=== PATIENT | male | born 1990 | race Caucasian/White ===

== ENCOUNTER 2021-05-16 15:27 | Emergency (ER) | payer OTHER ==
[~2021-05-16] VITALS: Ht 182.9 cm; Wt 88.0 kg
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
== END 2021-05-16 16:48 | disposition home or self-care (01) ==
LOC: ED 15:27
DX: R55 Syncope and collapse (principal); J45.909 Unspecified asthma, uncomplicated; Z88.2 Allergy status to sulfonamides
CPT/HCPCS: 99283

== ENCOUNTER 2021-08-16 15:53 | Emergency (ER) | payer OTHER ==
--- OUTSIDE RECORDS SUMMARY | 2021-08-16 15:54 | XMS ---
PreManage Notification: CAM RIVERA Security Shop Laborer Events No recent Security Events currently on file CRITERIA MET - [facility] - 2 Visits in 30 Days - 6 ED Visits in 6 Months CARE PROVIDERS ARTHUR CUEVAS Physician Current PHONE: [phone] Mic has no Care Guidelines for this patient. E.D. VISIT COUNT (12 MO.) 1 [facility] 2 Rene Meyer M[facility] 1 [facility] [place] [address] 3 [facility] TOTAL 11 NOTE: Visits indicate total known visits. ED/UCC VISIT TRACKING (12 MO.) 08/16/2021 15:53 SEL[facility] Pe[facility] [place] TYPE: Emergency COMPLAINT: - FALL 08/10/2021 16:59 [facility] [place] TYPE: Emergency COMPLAINT: - DENTAL PROBLEM 05/16/2021 15:28 [facility] [place] TYPE: Emergency COMPLAINT: - SEIZURE DIAGNOSES: - Syncope and collapse - Unspecified convulsions - Unspecified asthma, uncomplicated - Allergy status to sulfonamides 03/30/2021 10:53 [facility] TYPE: Emergency DIAGNOSES: 34041. foot pain;shoulder pain 84994. Homelessness unspecified 55326. Pain in left shoulder 03/28/2021 13:46 [facility] TYPE: Emergency DIAGNOSES: 30629. [id number] 23365. Contusion of other part of head, initial encounter 74936. Unspecified convulsions 59345. Abrasion of other part of head, initial encounter 03/03/2021 14:50 [facility] TYPE: Emergency DIAGNOSES: 36830. low blood sugar, seizure 58961. Tremor, unspecified 37694. Unspecified acute noninfective otitis externa, left ear 75522. Starvation, initial encounter 02/27/2021 21:06 [facility] [place] TYPE: Emergency DIAGNOSES: - Seizure (Adult - Prior Hx Of) - Contusion of left index finger without damage to nail, initial encounter 10/25/2020 21:10 [facility] [place] TYPE: Emergency DIAGNOSES: - Encounter for removal of sutures - Unspecified conjunctivitis - WANTS ANGELA REMOVED 10/23/2020 21:11 Rene [facility]NAL[facility] TYPE: Emergency COMPLAINT: - Staple check/removal DIAGNOSES: - Staple check/removal 10/02/2020 18:[address] [facility] [place] TYPE: Emergency COMPLAINT: - Unspecified convulsions DIAGNOSES: 1. Other seizures 2. Laceration without foreign body of scalp, initial encounter 3. Striking against or struck by other objects, initial encounter 4. Contact with and (suspected) exposure to COVID19 09/16/2020 02:20 [facility] [employer] [place] TYPE: Emergency COMPLAINT: - Nausea DIAGNOSES: 1. Nausea INPATIENT VISIT TRACKING (12 MO.) No inpatient visits to display in this time frame [id number]
== END 2021-08-16 18:00 | disposition home or self-care (01) ==
LOC: ED 15:53
DX: F10.129 Alcohol abuse with intoxication, unspecified (principal); J45.909 Unspecified asthma, uncomplicated; Z88.2 Allergy status to sulfonamides; Y90.8 Blood alcohol level of 240 mg/100 ml or more
CPT/HCPCS: 36415; 80048; 85025; 99284; G0480; J7030

== ENCOUNTER → 2021-09-23 | Emergency (ER) | payer OTHER ==
[~2021-09-23] VITALS: Ht 182.9 cm; Wt 93.9 kg
[~2021-09-23] MED LIST: FLUOXETINE HCL20 MG PO
--- OUTSIDE RECORDS SUMMARY | 2021-09-23 09:20 | XMS ---
PreManage Notification: CAM RIVERA Security Accounting Recruiter Events No recent Security Events currently on file CRITERIA MET - 6 ED Visits in 6 Months CARE PROVIDERS ARTHUR CUEVAS Physician Donor Services Team Leader Current PHONE: [phone] Mic has no Care Guidelines for this patient. E.D. VISIT COUNT (12 MO.) 1 Charles Garcia M[facility] 2 Rene Meyer M.C. 1 [facility] [place] [address] 4 SELAM Parker TOTAL 11 NOTE: Visits indicate total known visits. ED/UCC VISIT TRACKING (12 MO.) 09/23/2021 09:18 SEL[facility] [place] TYPE: Emergency COMPLAINT: - R HAND PAIN 08/16/2021 15:53 S[facility] [place] TYPE: Emergency COMPLAINT: - FALL DIAGNOSES: - Blood alcohol level of 240 mg/100 ml or more - Allergy status to sulfonamides - Alcohol abuse with intoxication, unspecified - Unspecified asthma, uncomplicated 08/10/2021 16:59 SEL[facility] [place] TYPE: Emergency COMPLAINT: - DENTAL PROBLEM 05/16/2021 15:28 [facility] [place] TYPE: Emergency COMPLAINT: - SEIZURE DIAGNOSES: - Syncope and collapse - Unspecified convulsions - Unspecified asthma, uncomplicated - Allergy status to sulfonamides 03/30/2021 10:53 [facility] TYPE: Emergency DIAGNOSES: 65407. foot pain;shoulder pain 07652. Homelessness unspecified 40447. Pain in left shoulder 03/28/2021 13:46 [facility] TYPE: Emergency DIAGNOSES: 80997. [id number] 26931. Contusion of other part of head, initial encounter 83737. Unspecified convulsions 02837. Abrasion of other part of head, initial encounter 03/03/2021 14:50 [facility] TYPE: Emergency DIAGNOSES: 44201. low blood sugar, seizure 93518. Tremor, unspecified 97526. Unspecified acute noninfective otitis externa, left ear 62755. Starvation, initial encounter 02/27/2021 21:06 [facility] ALLY [place] TYPE: Emergency DIAGNOSES: - Seizure (Adult - Prior Hx Of) - Contusion of left index finger without damage to nail, initial encounter 10/25/2020 21:10 [facility] [place] TYPE: Emergency DIAGNOSES: - Encounter for removal of sutures - Unspecified conjunctivitis - WANTS ANGELA REMOVED 10/23/2020 21:11 [facility] [place] TYPE: Emergency COMPLAINT: - Staple check/removal DIAGNOSES: - Staple check/removal 10/02/2020 [facility] [place] [facility] COMPLAINT: - Unspecified convulsions DIAGNOSES: 1. Other seizures 2. Laceration without foreign body of scalp, initial encounter 3. Striking against or struck by other objects, initial encounter 4. Contact with and (suspected) exposure to COVID19 INPATIENT VISIT TRACKING (12 MO.) No inpatient visits to display in this time frame [id number]
== END ==
LOC: ED 09:18
DX: S63.501A Unspecified sprain of right wrist, initial encounter (principal); S60.221A Contusion of right hand, initial encounter; W22.8XXA Striking against or struck by other objects, initial encounter; J45.909 Unspecified asthma, uncomplicated; Z88.2 Allergy status to sulfonamides; Z79.899 Other long term (current) drug therapy
CPT/HCPCS: 73110; 73130; 99283-25

== ENCOUNTER 2021-12-21 17:05 | Emergency (ER) | payer OTHER ==
[~2021-12-21] VITALS: Ht 182.9 cm; Wt 89.8 kg
== END 2021-12-21 18:58 | disposition home or self-care (01) ==
LOC: ED 17:05
DX: R42 Dizziness and giddiness (principal); Y04.8XXA Assault by other bodily force, initial encounter; J45.909 Unspecified asthma, uncomplicated; Z88.2 Allergy status to sulfonamides
CPT/HCPCS: 99284

== ENCOUNTER 2021-12-25 23:36 | Emergency (ER) | payer OTHER ==
[~2021-12-25] VITALS: Ht 182.9 cm; Wt 89.8 kg
--- OUTSIDE RECORDS SUMMARY | 2021-12-25 23:38 | XMS ---
PreManage Notification: CAM RIVERA Security Metal Riveter Events No recent Security Events currently on file CRITERIA MET - [facility] - 2 Visits in 30 Days CARE PROVIDERS ARTHUR CUEVAS Physician Hose Handler Current PHONE: [phone] Mic has no Care Guidelines for this patient. E.DCésar VISIT COUNT (12 MO.) [address] [facility] [place] [address] TOTAL 10 NOTE: Visits indicate total known visits. ED/C VISIT TRACKING (12 MO.) 12/25/2021 23:37 [facility] TYPE: Emergency COMPLAINT: - SEIZURE 12/21/2021 17:05 [facility] [place] TYPE: Emergency COMPLAINT: - FALL 09/23/2021 09:18 [facility] [place] TYPE: Emergency COMPLAINT: - R HAND PAIN DIAGNOSES: - Allergy status to sulfonamides - Unspecified asthma, uncomplicated - Unspecified sprain of right wrist, initial encounter - Pain in right wrist - Striking against or struck by other objects, initial encounter - Contusion of right hand, initial encounter - Other intermediate (current) drug therapy 08/16/2021 15:53 [facility] [place] [facility] COMPLAINT: - FALL DIAGNOSES: - Alcohol abuse with intoxication, unspecified - Blood alcohol level of 240 mg/100 ml or more - Unspecified asthma, uncomplicated - Allergy status to sulfonamides 08/10/2021 16:59 [facility] [place] COMPLAINT: - DENTAL PROBLEM 05/16/2021 15:[address] [facility] [address] [facility] [place] TYPE: Emergency COMPLAINT: - SEIZURE DIAGNOSES: - Unspecified asthma, uncomplicated - Syncope and collapse - Allergy status to sulfonamides - Unspecified convulsions 03/30/2021 10:53 [facility] [place] TYPE[facility] DIAGNOSES: 47879. foot pain;shoulder pain . Pain in left shoulder . Homelessness unspecified 03/28/2021 13:46 [facility] TYPE: Emergency DIAGNOSES: 86356. [id number] 24869. Contusion of other part of head, initial encounter 22061. Abrasion of other part of head, initial encounter 37216. Unspecified convulsions 03/03/2021 14:50 [facility] TYPE: Emergency DIAGNOSES: 74426. low blood sugar, seizure 83314. Starvation, initial encounter 70766. Tremor, unspecified 01273. Unspecified acute noninfective otitis externa, left ear 02/27/2021 21:06 [facility] [place] TYPE: Emergency DIAGNOSES: - Seizure (Adult - Prior Hx Of) - Contusion of left index finger without damage to nail, initial encounter INPATIENT VISIT TRACKING (12 MO.) No inpatient visits to display in this time frame [id number]
[2021-12-26] MEDS ORDERED: KEPPRA500 MG PO (00:16)
== END 2021-12-26 00:57 | disposition home or self-care (01) ==
LOC: ED 23:36
DX: S09.90XA Unspecified injury of head, initial encounter (principal); R56.9 Unspecified convulsions; W19.XXXA Unspecified fall, initial encounter; J45.909 Unspecified asthma, uncomplicated; Z88.2 Allergy status to sulfonamides
CPT/HCPCS: 99284; A9270-GY

== ENCOUNTER 2022-02-25 09:33 | Emergency (ER) | payer OTHER ==
[~2022-02-25] VITALS: Ht 182.9 cm; Wt 86.2 kg
[~2022-02-25 09:33] MED LIST changes: +KEPPRA500 MG PO
== END 2022-02-25 10:34 | disposition home or self-care (01) ==
LOC: ED 09:33
DX: S63.502A Unspecified sprain of left wrist, initial encounter (principal); J45.909 Unspecified asthma, uncomplicated; Z88.2 Allergy status to sulfonamides; Z79.899 Other long term (current) drug therapy
CPT/HCPCS: 73110; 99283-25

== ENCOUNTER 2022-02-26 06:14 | Emergency (ER) | payer OTHER ==
[~2022-02-26] VITALS: Ht 182.9 cm; Wt 87.1 kg
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
== END 2022-02-26 07:33 | disposition home or self-care (01) ==
LOC: ED 06:14
DX: B34.9 Viral infection, unspecified (principal); G40.909 Epilepsy, unspecified, not intractable, without status epilepticus; J45.909 Unspecified asthma, uncomplicated; Z20.822 Contact with and (suspected) exposure to COVID-19; Z88.2 Allergy status to sulfonamides; Z79.899 Other long term (current) drug therapy
CPT/HCPCS: 87502; 99283; C9803; U0003

== ENCOUNTER 2022-05-12 23:10 | Emergency (ER) | payer OTHER ==
[~2022-05-12] VITALS: Ht 182.9 cm; Wt 87.1 kg
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
== END 2022-05-13 00:23 | disposition home or self-care (01) ==
LOC: ED 23:10
DX: F45.8 Other somatoform disorders (principal); R56.9 Unspecified convulsions; J45.909 Unspecified asthma, uncomplicated; Z88.2 Allergy status to sulfonamides; Z79.899 Other long term (current) drug therapy
CPT/HCPCS: 36415; 70360; 84443; 99284-25

== ENCOUNTER 2022-05-19 05:10 | Emergency (ER) | payer OTHER ==
[~2022-05-19] VITALS: Ht 182.9 cm; Wt 87.1 kg
--- OUTSIDE RECORDS SUMMARY | 2022-05-19 05:14 | XMS ---
PreManage Notification: CAM RIVERA Security Camera Tuning Engineer Events No recent Security Events currently on file CRITERIA MET - 6 ED Visits in 6 Months - [facility] - 2 Visits in 30 Days CARE PROVIDERS ARTHUR CUEVAS Physician Gas Brazer Current PHONE: [phone] Mic has no Care Guidelines for this patient. Symone VISIT COUNT (12 MO.) 1 Will Arana [address] [place] [address] TOTAL 10 NOTE: Visits indicate total known visits. ED/UCC VISIT TRACKING (12 MO.) 05/19/2022 05:11 SEL[facility] Pe[facility] [place] TYPE: Emergency COMPLAINT: - SEIZURE 05/12/2022 23:11 SEL[facility] [place] TYPE: Emergency COMPLAINT: - THYROID ISSUE DIAGNOSES: - Other termite renewal inspector (current) drug therapy - Unspecified asthma, uncomplicated - Allergy status to sulfonamides - Cervicalgia - Unspecified convulsions - Other somatoform disorders 02/26/2022 06:15 SEL[facility] Pereira [place] TYPE: Emergency COMPLAINT: - SEIZURE DIAGNOSES: - Viral infection, unspecified - Allergy status to sulfonamides - Epilepsy, unspecified, not intractable, without status epilepticus - Other termite renewal inspector (current) drug therapy - Contact with and (suspected) exposure to COVID-19 - Unspecified asthma, uncomplicated 02/25/2022 09:34 SEL[facility] Pe[facility] [place] TYPE: Emergency COMPLAINT: - FALL DIAGNOSES: - Unspecified asthma, uncomplicated - Other termite renewal inspector (current) drug therapy - Allergy status to [...] - R HAND PAIN DIAGNOSES: - Other senior living (current) drug therapy - Allergy status to [...] [place] TYPE: Emergency COMPLAINT: - DENTAL PROBLEM INPATIENT VISIT TRACKING (12 MO.) No inpatient visits to display in this time frame [id number]
== END 2022-05-19 05:35 | disposition home or self-care (01) ==
LOC: ED 05:10
DX: R25.1 Tremor, unspecified (principal); J45.909 Unspecified asthma, uncomplicated; Z88.2 Allergy status to sulfonamides; Z79.899 Other long term (current) drug therapy
CPT/HCPCS: 99284; A9270

== ENCOUNTER 2022-10-12 21:26 | Emergency (ER) | payer OTHER ==
[~2022-10-12] VITALS: Ht 182.9 cm; Wt 88.9 kg
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
[~2022-10-12 21:26] MED LIST changes: +DOXYCYCLINE HY100 MG PO
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
[2022-10-12] MEDS ORDERED: AMOX TR-K CLV1 EAC1 PO (21:38)
[2022-10-12 22:14] VITALS: BP 132/80
== END 2022-10-12 22:17 | disposition home or self-care (01) ==
LOC: ED 21:26
DX: S61.452A Open bite of left hand, initial encounter (principal); W54.0XXA Bitten by dog, initial encounter; J45.909 Unspecified asthma, uncomplicated; Z88.2 Allergy status to sulfonamides
CPT/HCPCS: 90471; 99283 25

== ENCOUNTER 2022-10-14 17:20 | Emergency (ER) | payer OTHER ==
[~2022-10-14] VITALS: Ht 185.4 cm; Wt 89.1 kg
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
[~2022-10-14 17:20] MED LIST changes: +AMOX TR-K CLV1 EAC1 PO
--- OUTSIDE RECORDS SUMMARY | 2022-10-14 17:29 | XMS ---
PreManage Notification: CAM RIVERA Security Second Shift Supervisor Events No recent Security Events currently on file CRITERIA MET - 6 ED Visits in 6 Months - [facility] - 2 Visits in 30 Days CARE PROVIDERS -, Abhijit- Dentist: Wellness Health Coach [facility] PHONE: [phone] ARTHUR CUEVAS Physician Box Office Agent Current PHONE: [phone] Mic has no Care Guidelines for this patient. EDemetrio VISIT COUNT (12 MO.) [address] Ar[address] [place] [address] TOTAL 11 NOTE: Visits indicate total known visits. ED/UCC VISIT TRACKING (12 MO.) 10/14/2022 17:22 [facility] TYPE: Emergency COMPLAINT: - WOUND INFECTION 10/12/2022 21:[address] [facility] [address] [facility] [place] TYPE: Emergency COMPLAINT: - DOG BITE RT HAND 09/29/2022 08:[address] [facility] [address] [facility] TYPE: Emergency COMPLAINT: - ARM PAIN DIAGNOSES: - Allergy status to sulfonamides - Cutaneous abscess of left axilla - Unspecified asthma, uncomplicated 06/18/2022 22:52 [facility] TYPE: Emergency COMPLAINT: - SEIZURE DIAGNOSES: - Allergy status to sulfonamides - Unspecified asthma, uncomplicated - Unspecified convulsions - Unspecified otitis externa, left ear 05/19/2022 05:11 [facility] TYPE: Emergency COMPLAINT: - SEIZURE DIAGNOSES: - Allergy status to sulfonamides - Epilepsy, unspecified, not intractable, without status epilepticus - Other intermodal customer service (current) drug therapy - Tremor, unspecified - Unspecified asthma, uncomplicated 05/12/2022 23:11 [facility] TYPE: Emergency COMPLAINT: - THYROID ISSUE DIAGNOSES: - Allergy status to sulfonamides - Cervicalgia - Other intermodal customer service (current) drug therapy - Other somatoform disorders - Unspecified asthma, uncomplicated - Unspecified convulsions 02/26/2022 06:15 [facility] TYPE: Emergency COMPLAINT: - SEIZURE DIAGNOSES: - Allergy status to sulfonamides - Contact with and (suspected) exposure to COVID-19 - Epilepsy, unspecified, not intractable, without status epilepticus - Other mcfp (current) drug therapy - Unspecified asthma, uncomplicated - Viral infection, unspecified 02/25/2022 09:34 [facility] TYPE: Emergency COMPLAINT: - FALL DIAGNOSES: - Allergy status to sulfonamides - Other mcfp (current) drug therapy - Pain in left [...] visits to display in this time frame [email or web address]
[2022-10-14 18:11] VITALS: BP 131/89
== END 2022-10-14 18:11 | disposition home or self-care (01) ==
LOC: ED 17:20
DX: S61.451D Open bite of right hand, subsequent encounter (principal); W54.0XXD Bitten by dog, subsequent encounter; J45.909 Unspecified asthma, uncomplicated; Z88.2 Allergy status to sulfonamides; Z79.899 Other long term (current) drug therapy
CPT/HCPCS: 99283

== ENCOUNTER 2022-10-30 10:58 | Emergency (ER) | payer OTHER ==
[~2022-10-30] VITALS: Ht 185.4 cm; Wt 89.1 kg
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
--- OUTSIDE RECORDS SUMMARY | 2022-10-30 11:01 | XMS ---
PreManage Notification: CAM RIVERA Security Administrative Tech Events No recent Security Events currently on file CRITERIA MET - 6 ED Visits in 6 Months - [facility] - 2 Visits in 30 Days CARE PROVIDERS -Abhijit- Dentist: Preventive Medicine Physician [facility] PHONE: [phone] ARTHUR CUEVAS Physician Stereoptic Projection Topographer Current PHONE: [phone] Mic has no Care Guidelines for this patient. EDemetrio VISIT COUNT (12 MO.) 1 Will Arana [address] [place] [address] TOTAL 12 NOTE: Visits indicate total known visits. ED/UCC VISIT TRACKING (12 MO.) 10/30/2022 10:[address] [facility] [place] TYPE: Emergency COMPLAINT: - WOUND CHECK 10/14/2022 17:22 [facility] [place] TYPE: Emergency COMPLAINT: - WOUND INFECTION DIAGNOSES: - Allergy status to sulfonamides - Bitten by dog, subsequent encounter - Open bite of right hand, subsequent encounter - Other exterminator termite (current) drug therapy - Unspecified asthma, uncomplicated 10/12/2022 21:[address] [facility] [place] [facility] [place] TYPE: Emergency COMPLAINT: - DOG BITE RT HAND DIAGNOSES: - Allergy status to sulfonamides - Bitten by dog, initial encounter - Open bite of left hand, initial encounter - Unspecified asthma, uncomplicated 09/29/2022 08:[address] [facility] [place] [facility] [place] TYPE: Emergency COMPLAINT: - ARM PAIN DIAGNOSES: - Allergy status to sulfonamides - Cutaneous abscess of left axilla - Unspecified asthma, uncomplicated 06/18/2022 22:[address] [facility] [place] [facility] [place] TYPE: Emergency COMPLAINT: - SEIZURE DIAGNOSES: - Allergy status to sulfonamides - Unspecified asthma, uncomplicated - Unspecified convulsions - Unspecified otitis externa, left ear 05/19/2022 05:[address] [facility] [place] [facility] [place] TYPE: Emergency COMPLAINT: - SEIZURE DIAGNOSES: - Allergy status to sulfonamides - Epilepsy, unspecified, not intractable, without status epilepticus - Other exterminator termite (current) drug therapy - Tremor, unspecified - Unspecified asthma, uncomplicated 05/12/2022 23:11 [facility] [place] TYPE: Emergency COMPLAINT: - THYROID ISSUE DIAGNOSES: - Allergy status to sulfonamides - Cervicalgia - Other exterminator termite (current) drug therapy - Other somatoform disorders - Unspecified asthma, uncomplicated - Unspecified convulsions 02/26/2022 06:15 [facility] [place] TYPE: Emergency COMPLAINT: - SEIZURE DIAGNOSES: - Allergy status to sulfonamides - Contact with and (suspected) exposure to COVID-19 - Epilepsy, unspecified, not intractable, without status epilepticus - Other exterminator termite (current) drug therapy - Unspecified asthma, uncomplicated - Viral infection, unspecified 02/25/2022 09:34 [facility] [place] TYPE: Emergency COMPLAINT: - FALL DIAGNOSES: - Allergy status to sulfonamides - Other exterminator termite (current) drug therapy - Pain in left wrist - Unspecified asthma, uncomplicated - Unspecified sprain of left wrist, initial encounter 12/26/2021 22:54 [facility] [place] TYPE: Emergency DIAGNOSES: - Diarrhea, unspecified [...] visits to display in this time frame [email or web address]
[2022-10-30] MEDS ORDERED: LEVETIRACETAM500 MG PO (11:08)
[2022-10-30 11:16] VITALS: BP 148/98
== END 2022-10-30 11:16 | disposition home or self-care (01) ==
LOC: ED 10:58
DX: S61.250D Open bite of right index finger without damage to nail, subsequent encounter (principal); S61.256D Open bite of right little finger without damage to nail, subsequent encounter; W54.0XXD Bitten by dog, subsequent encounter; J45.909 Unspecified asthma, uncomplicated; Z88.2 Allergy status to sulfonamides
CPT/HCPCS: 99283

== ENCOUNTER 2022-11-02 17:45 | Emergency (ER) | payer OTHER ==
[~2022-11-02] VITALS: Ht 185.4 cm; Wt 89.1 kg
[~2022-11-02 17:45] MED LIST changes: +LEVETIRACETAM500 MG PO
--- OUTSIDE RECORDS SUMMARY | 2022-11-02 17:52 | XMS ---
PreManage Notification: CAM RIVERA Security Animal Caregiver Events No recent Security Events currently on file CRITERIA MET - 6 ED Visits in 6 Months - [facility] - 2 Visits in 30 Days CARE PROVIDERS -, Abhijit- Dentist: Sap Developer [facility] PHONE: [phone] ARTHUR CUEVAS Physician Animal Impersonator Current PHONE: [phone] Mic has no Care Guidelines for this patient. EDemetrio VISIT COUNT (12 MO.) 1 Will Barrera [address] TOTAL 13 NOTE: Visits indicate total known visits. ED/UCC VISIT TRACKING (12 MO.) 11/02/2022 17:[address] [facility] [place] TYPE: Emergency COMPLAINT: - WOUND CHECK 10/30/2022 10:59 [facility] [place] TYPE: Emergency COMPLAINT: - WOUND CHECK DIAGNOSES: - Allergy status to sulfonamides - Bitten by dog, subsequent encounter - Open bite of right index finger without damage to nail, subsequent encounter - Open bite of right little finger without damage to nail, subsequent encounter - Unspecified asthma, uncomplicated 10/14/2022 17:22 [facility] [place] TYPE: Emergency COMPLAINT: - WOUND INFECTION DIAGNOSES: - Allergy status to sulfonamides - Bitten by dog, subsequent encounter - Open bite of right hand, subsequent encounter - Other emt intermediate (current) drug therapy - Unspecified asthma, uncomplicated 10/12/2022 21:26 [facility] [place] TYPE: Emergency COMPLAINT: - DOG BITE RT HAND DIAGNOSES: - Allergy status to sulfonamides - Bitten by dog, initial encounter - Open bite of left hand, initial encounter - Unspecified asthma, uncomplicated 09/29/2022 08:48 [facility] [place] TYPE: Emergency COMPLAINT: - ARM PAIN DIAGNOSES: - Allergy status to sulfonamides - Cutaneous abscess of left axilla - Unspecified asthma, uncomplicated 06/18/2022 22:52 [facility] [place] TYPE: Emergency COMPLAINT: - SEIZURE DIAGNOSES: - Allergy status to sulfonamides - Unspecified asthma, uncomplicated - Unspecified convulsions - Unspecified otitis externa, left ear 05/19/2022 05:11 [facility] [place]: [place] COMPLAINT: - SEIZURE DIAGNOSES: - Allergy status to sulfonamides - Epilepsy, unspecified, not intractable, without status epilepticus - Other emt intermediate (current) drug therapy - Tremor, unspecified - Unspecified asthma, uncomplicated 05/12/2022 23:11 [facility] [place] TYPE: Emergency COMPLAINT: - THYROID ISSUE DIAGNOSES: - Allergy status to sulfonamides - Cervicalgia - Other emt intermediate (current) drug therapy - Other somatoform disorders - Unspecified asthma, uncomplicated - Unspecified convulsions 02/26/2022 06:15 [facility] [place] TYPE: Emergency COMPLAINT: - SEIZURE DIAGNOSES: - Allergy status to sulfonamides - Contact with and (suspected) exposure to COVID-19 - Epilepsy, unspecified, not intractable, without status epilepticus - Other emt intermediate (current) drug therapy - Unspecified asthma, uncomplicated - Viral infection, unspecified 02/25/2022 09:34 [facility] [place] TYPE: Emergency COMPLAINT: - FALL DIAGNOSES: - Allergy status to sulfonamides - Other emt intermediate (current) drug therapy - Pain in left [...] visits to display in this time frame [id number]
[2022-11-02] MEDS ORDERED: DOXYCYCLINE HY100 MG PO (19:09)
[2022-11-02 19:27] VITALS: BP 157/101
== END 2022-11-02 19:28 | disposition home or self-care (01) ==
LOC: ED 17:45
DX: S61.256D Open bite of right little finger without damage to nail, subsequent encounter (principal); W54.0XXD Bitten by dog, subsequent encounter; J45.909 Unspecified asthma, uncomplicated; Z88.2 Allergy status to sulfonamides; Z79.899 Other long term (current) drug therapy
CPT/HCPCS: 99282

== ENCOUNTER 2023-03-15 16:31 | Emergency (ER) | payer OTHER ==
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
[2023-03-15] MEDS ORDERED: LEVETIRACETAM500 MG PO (16:49)
[2023-03-15 21:16] VITALS: BP 119/66
== END 2023-03-15 21:18 | disposition home or self-care (01) ==
LOC: ED 16:31
DX: F10.939 Alcohol use, unspecified with withdrawal, unspecified (principal); R56.9 Unspecified convulsions; Z88.2 Allergy status to sulfonamides; Z79.899 Other long term (current) drug therapy
CPT/HCPCS: 80053; 80307; 83735; 84100; 85025; 85610; 99284; A9270-GY; G0480

== ENCOUNTER 2023-04-21 11:05 | Emergency (ER) | payer OTHER ==
[~2023-04-21] VITALS: Ht 185.4 cm; Wt 93.7 kg
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
[2023-04-21 15:20] VITALS: BP 121/89
== END 2023-04-21 15:20 | disposition home or self-care (01) ==
LOC: ED 11:05
DX: R07.89 Other chest pain (principal); Z88.2 Allergy status to sulfonamides; Z79.899 Other long term (current) drug therapy
CPT/HCPCS: 71046; 99284-25

== ENCOUNTER 2024-03-27 05:39 | Emergency (ER) | payer OTHER ==
[~2024-03-27] VITALS: Ht 185.4 cm; Wt 85.0 kg
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
[2024-03-27] MEDS ORDERED: LEVETIRACETAM750 MG PO (05:47)
[2024-03-27] MEDS ORDERED: levETIRAcetam 500 MG TAB PO ONE (06:00)
[2024-03-27 06:21] VITALS: BP 150/75
[2024-03-28] MEDS ORDERED: KEPPRA750 MG PO (20:02)
== END 2024-03-27 06:22 | disposition home or self-care (01) ==
LOC: ED 05:39
DX: Z76.0 Encounter for issue of repeat prescription (principal); G40.909 Epilepsy, unspecified, not intractable, without status epilepticus; J45.909 Unspecified asthma, uncomplicated; Z88.2 Allergy status to sulfonamides; Z79.899 Other long term (current) drug therapy
CPT/HCPCS: 80053; 80177; 80307; 83735; 84100; 85025; 99282; G0480

== ENCOUNTER 2024-03-28 19:18 | Emergency (ER) | payer OTHER ==
[~2024-03-28] VITALS: Ht 185.4 cm; Wt 89.7 kg
[~2024-03-28 19:18] MED LIST changes: +LEVETIRACETAM750 MG PO
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
[2024-03-28 19:45] VITALS: BP 150/88
[2024-03-28] MEDS ORDERED: KEPPRA750 MG PO (20:02)
[2024-03-28] MEDS ORDERED: levETIRAcetam 500 MG TAB PO ONE (20:15)
== END 2024-03-28 20:11 | disposition home or self-care (01) ==
LOC: ED 19:18
DX: G40.909 Epilepsy, unspecified, not intractable, without status epilepticus (principal); Z59.00 Homelessness unspecified; Z88.2 Allergy status to sulfonamides
CPT/HCPCS: 99284

== ENCOUNTER 2024-04-02 11:50 | Emergency (ER) | payer OTHER ==
[~2024-04-02] VITALS: Ht 185.4 cm; Wt 90.1 kg
[~2024-04-02 11:50] MED LIST changes: +KEPPRA750 MG PO
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
[2024-04-02] MEDS ORDERED: levETIRAcetam 500 MG TAB PO ONE (12:00)
[2024-04-02] MEDS ORDERED: KEPPRA750 MG PO (12:05)
[2024-04-02 12:10] VITALS: BP 147/73
== END 2024-04-02 12:10 | disposition home or self-care (01) ==
LOC: ED 11:50
DX: Z76.0 Encounter for issue of repeat prescription (principal); G40.909 Epilepsy, unspecified, not intractable, without status epilepticus; J45.909 Unspecified asthma, uncomplicated; Z88.2 Allergy status to sulfonamides; Z79.899 Other long term (current) drug therapy
CPT/HCPCS: 99284